=== PATIENT | male | born 1955 | race Caucasian/White ===

== ENCOUNTER → 2019-07-16 | Outpatient (CLI) | payer MEDICARE ==
--- NOTE | 2019-07-17 07:14 | REP ---
SCROTAL SONOGRAPHY: HISTORY: Scrotal fullness. FINDINGS: High-resolution bilateral scrotal sonography is performed. There is no evidence of intratesticular mass lesion. Right testis measures 4.7 x 2.2 x 2.8 cm. Left testicular dimensions of 3.6 x 1.8 x 3.4 cm. Testicular Doppler flow is present bilaterally and normal with resistive indices measured at 0.52 and 0.46 on the right and left respectively. There are small intratesticular cysts noted bilaterally. In the lower pole of the right testis there is a 0.4 cm cyst. In the lower pole of the left testis, there are two adjacent similar size cysts 0.3 cm in greatest diameter each. Superior to the left testis, there is a large septated cystic lesion 6.7 x 3.1 x 6.3 cm. This is felt to be epididymal cyst. The left epididymis is otherwise not seen. Right epididymis is unremarkable. There is some dilation of the rete testis in the mediastinum testis on the left. This is an incidental benign finding. IMPRESSION: 6.7 cm epididymal cyst on the left. Small intratesticular cysts bilaterally. 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 Electronically Signed by Keith Wheat MD 07/17/2019 08:16 A
== END ==
LOC: M RAD 17:08
PROVIDERS: ATTEND Family Medicine
DX: N50.89 Other specified disorders of the male genital organs (principal)

== ENCOUNTER → 2019-08-22 | Outpatient (CLI) | payer MEDICARE ==
[2019-08-22 13:04] LABS: HEMATOCRIT 45.9 % (42.0-52.0); HEMOGLOBIN 16.2 g/dl (13.5-17.5); MEAN CORPUSCULAR HEMOGLOBIN 32.5 pg (27.0-33.0); MEAN CORPUSCULAR HGB CONC 35.3 g/dl (32.0-36.5); MEAN CORPUSCULAR VOLUME 92.2 fl (80.0-96.0); PLATELET COUNT, AUTOMATED 320 10^3/uL (150-450); RED BLOOD COUNT 4.98 10^6/uL (4.30-6.10); WHITE BLOOD COUNT 7.8 10^3/uL (4.0-10.0)
[2019-08-22 13:40] LABS: BLOOD UREA NITROGEN 13 MG/DL (7-18); CALCIUM LEVEL 9.4 MG/DL (8.8-10.2); CARBON DIOXIDE LEVEL 29 MEQ/L (21-32); CHLORIDE LEVEL 105 MEQ/L (98-107); CREATININE FOR GFR 0.85 MG/DL (0.70-1.30); GLOMERULAR FILTRATION RATE > 60.0 (>49); GLUCOSE, FASTING 95 MG/DL (70-100); POTASSIUM SERUM 4.2 MEQ/L (3.5-5.1); SODIUM LEVEL 140 MEQ/L (136-145)
--- NOTE | 2019-08-22 16:03 | REP ---
REASON: History of epididymal cyst. There are no prior plain chest radiographs for comparison. There is left apical pleural capping with evidence of curvilinear densities from that region to the left sided superior mediastinum and silhouetting out a portion of the aortic knob. There is a Mediport device entering from the right the tip of which is in the superior vena cava. The heart is not enlarged. The pleural angles are sharp. There are no appreciable right lung changes. The osseous structures are within normal limits. IMPRESSION: Likely left upper lobe scar formation. Etiology uncertain. Since there is a Mediport device in place there is likely postoperative and/or postradiation change. Clinical correlation and followup is suggested. Electronically Signed by Kartik Obregon DO 08/23/2019 12:20 P
== END ==
LOC: M ADAMS 10:54
PROVIDERS: ATTEND Urology
DX: N50.3 Cyst of epididymis (principal)

== ENCOUNTER → 2020-09-03 | Outpatient (REF) | payer MEDICARE ==
[2020-09-03 12:47] LABS: BASO % 0.5 % (0.0-1.0); EOS # 0.4 10^3/uL (0.0-0.5); EOS % 5.9 % (0.0-3.0); HEMATOCRIT 48.8 % (42.0-52.0); HEMOGLOBIN 16.6 g/dl (13.5-17.5); LYMPH # 0.8 10^3/uL (1.5-5.0); LYMPH % 13.3 % (24.0-44.0); MEAN CORPUSCULAR HEMOGLOBIN 30.9 pg (27.0-33.0); MEAN CORPUSCULAR VOLUME 90.9 fl (80.0-96.0); MONO # 0.7 10^3/uL (0.0-0.8); MONO % 11.6 % (2.0-8.0); NEUTROPHILS # 4.2 10^3/uL (1.5-8.5); NEUTROPHILS % 68.1 % (36.0-66.0); PLATELET COUNT, AUTOMATED 270 10^3/uL (150-450); RED BLOOD COUNT 5.37 10^6/uL (4.30-6.10); WHITE BLOOD COUNT 6.2 10^3/uL (4.0-10.0)
[2020-09-03 13:19] LABS: ALBUMIN 3.6 GM/DL (3.2-5.2); ALT/SGPT 15 U/L (12-78); BILIRUBIN,TOTAL 1.2 MG/DL (0.2-1.0); BLOOD UREA NITROGEN 19 MG/DL (7-18); CALCIUM LEVEL 8.9 MG/DL (8.8-10.2); CARBON DIOXIDE LEVEL 29 MEQ/L (21-32); CHLORIDE LEVEL 108 MEQ/L (98-107); CHOLESTEROL LEVEL 186 MG/DL (<200); CHOLESTEROL RISK RATIO 3.647 (<5); CREATININE FOR GFR 0.75 MG/DL (0.70-1.30); FREE T4 1.06 NG/DL (0.76-1.46); GLOMERULAR FILTRATION RATE > 60.0 (>49); GLUCOSE, FASTING 91 MG/DL (70-100); HDL CHOLESTEROL 51 MG/DL (>40); LDL CHOLESTEROL 118 MG/DL (<100); NON-HDL-C 135 MG/DL; POTASSIUM SERUM 4.3 MEQ/L (3.5-5.1); SODIUM LEVEL 140 MEQ/L (136-145); TRIGLYCERIDES LEVEL 85 MG/DL (<150)
[2020-09-03 13:21] LABS: VITAMIN B12 LEVEL 371 PG/ML
[2020-09-03 13:23] LABS: FOLATE 5.5 NG/ML
== END ==
LOC: M SFHCADAM 09:16
PROVIDERS: ATTEND Family Medicine
DX: G47.00 Insomnia, unspecified (principal); R20.2 Paresthesia of skin; Z79.899 Other long term (current) drug therapy

== ENCOUNTER → 2020-09-29 | Outpatient (REF) | payer MEDICARE | LOC: M SFHCADAM 10:22 | PROVIDERS: ATTEND Family Medicine | DX: R35.1 Nocturia (principal) ==

== ENCOUNTER → 2021-05-01 | Outpatient (CLI) | payer MEDICARE ==
--- NOTE | 2021-05-01 09:22 | REP ---
INDICATION: ELEVATED LFT'S NEEDS LAB AFTER US COMPARISON: None. TECHNIQUE: Real time cerrato scale ultrasound examination using curved array transducer. FINDINGS: Liver is mildly echogenic suggesting fatty infiltration. No focal hepatic lesion identified. Pancreas is normal in appearance. The gallbladder demonstrates multiple gallstones without wall thickening or pericholecystic fluid. No biliary ductal dilatation is appreciated and the common bile duct measures 4.0 mm diameter. Right kidney is normal in reniform shape without hydronephrosis and measures 11.8 x 5.5 x 4.6 cm. No ascites in the visualized right upper quadrant. IMPRESSION: Cholelithiasis. Mild hepatosteatosis. <Electronically signed by Chang Mejia > 05/01/21 [id number]
[2021-05-01 10:27] LABS: INR 1.01; PROTHROMBIN TIME 13.7 SECONDS (12.7-14.5)
[2021-05-01 10:28] LABS: PARTIAL THROMBOPLASTIN TIME 35.2 SECONDS (25.9-37.0)
[2021-05-01 10:49] LABS: ALBUMIN 4.1 GM/DL (3.2-5.2); ALT/SGPT 17 U/L (12-78); BILIRUBIN,DIRECT 0.5 MG/DL (0.0-0.2); BILIRUBIN,TOTAL 2.5 MG/DL (0.2-1.0); FERRITIN 327 NG/ML (26-388); IRON (FE) 86 UG/DL (65-175); PERCENT SATURATION 26.3 % (19.7-50.0); THYROID STIMULATING HORMONE 0.616 uIU/ML (0.358-3.740); TOTAL IRON BINDING CAPACITY 327 UG/DL (250-450); TOTAL PROTEIN 7.8 GM/DL (6.4-8.2)
[2021-05-01 11:22] LABS: HEPATITIS B SURFACE ANTIBODY NEGATIVE (POSITIVE)
[2021-05-01 11:32] LABS: HEPATITIS B SURFACE ANTIGEN NEGATIVE (NEGATIVE)
[2021-05-01 12:00] LABS: HEPATITIS C VIRUS ABY INDEX 0.1 INDEX (<0.8)
[2021-05-02 18:11] LABS: ALPHA 1 ANTITRYPSIN 143 mg/dL (101-187); ANTI-MITOCHONDRIAL ANTIBODY <20.0 Units (0.0-20.0); ANTI-SMOOTH MUSCLE ANTIBODY 8 Units (0-19); ANTINUCLEAR ANTIBODIES DIRECT Negative (Negative); CERULOPLASMIN 29.3 mg/dL (16.0-31.0); HEPATITIS A IgG TOTAL Positive (Negative); LIVER-KIDNEY MICROSOMAL ABY <20.1 Units (0.0-20.0); TISSUE TRANSGLUTAMINASE IgA <2 U/mL (0-3); TISSUE TRANSGLUTAMINASE IgG 7 U/mL (0-5)
[2021-05-04 09:38] LABS: ALBUMIN 4.56 GM/DL (3.29-5.55); ALBUMIN % 58.4 % (55.8-66.1); ALPHA-1-GLOBULIN % 4.1 % (2.9-4.9); ALPHA-1-GLOBULINS 0.32 GM/DL (0.17-0.41); ALPHA-2-GLOBULINS 0.73 GM/DL (0.42-0.99); ALPHA-2-GLOBULINS % 9.4 % (7.1-11.8); BETA-1-GLOBULINS 0.44 GM/DL (0.28-0.60); BETA-1-GLOBULINS % 5.7 % (4.7-7.2); BETA-2-GLOBULINS 0.41 GM/DL (0.19-0.55); BETA-2-GLOBULINS % 5.2 % (3.2-6.5); GAMMA GLOBULIN % 17.2 % (11.1-18.8); GAMMA GLOBULINS 1.34 GM/DL (0.65-1.58)
== END ==
LOC: M RAD 08:08 → M LAB 08:08
PROVIDERS: ATTEND Physician Assistant Medical
DX: R94.5 Abnormal results of liver function studies (principal); Z12.11 Encounter for screening for malignant neoplasm of colon; K80.20 Calculus of gallbladder without cholecystitis without obstruction

== ENCOUNTER → 2021-07-20 | Outpatient (REF) | payer MEDICARE ==
[2021-07-20 13:36] LABS: BLOOD UREA NITROGEN 15 MG/DL (7-18); CREATININE FOR GFR 0.76 MG/DL (0.70-1.30); GLOMERULAR FILTRATION RATE > 60.0 (>49)
== END ==
LOC: M LABDRWAD 12:17
PROVIDERS: ATTEND Radiology Radiation Oncology
DX: C34.12 Malignant neoplasm of upper lobe, left bronchus or lung (principal)

== ENCOUNTER → 2021-07-29 | Outpatient (CLI) | payer MEDICARE ==
[~2021-07-29] MED LIST: PROHANCE 279.3MG/ML 15ML VIAL As Ordered ONE
== END ==
LOC: M RAD 15:07
PROVIDERS: ATTEND Radiology Radiation Oncology
DX: C34.12 Malignant neoplasm of upper lobe, left bronchus or lung (principal); C79.31 Secondary malignant neoplasm of brain
CPT/HCPCS: 70553; A9576

== ENCOUNTER → 2021-10-08 | Outpatient (REF) | payer MEDICARE ==
[2021-10-09 13:05] LABS: BASO % 0.6 % (0.0-1.0); EOS # 0.1 10^3/uL (0.0-0.5); EOS % 2.2 % (0.0-3.0); HEMATOCRIT 41.9 % (42.0-52.0); HEMOGLOBIN 14.6 g/dl (13.5-17.5); LYMPH # 1.1 10^3/uL (1.5-5.0); LYMPH % 17.2 % (24.0-44.0); MEAN CORPUSCULAR HEMOGLOBIN 31.4 pg (27.0-33.0); MEAN CORPUSCULAR HGB CONC 34.8 g/dl (32.0-36.5); MEAN CORPUSCULAR VOLUME 90.1 fl (80.0-96.0); MONO # 0.8 10^3/uL (0.0-0.8); NEUTROPHILS # 4.4 10^3/uL (1.5-8.5); NEUTROPHILS % 67.7 % (36.0-66.0); PLATELET COUNT, AUTOMATED 282 10^3/uL (150-450); RED BLOOD COUNT 4.65 10^6/uL (4.30-6.10); WHITE BLOOD COUNT 6.5 10^3/uL (4.0-10.0)
[2021-10-09 13:11] LABS: ALBUMIN 3.9 GM/DL (3.2-5.2); ALT/SGPT 20 U/L (12-78); BILIRUBIN,TOTAL 1.3 MG/DL (0.2-1.0); BLOOD UREA NITROGEN 21 MG/DL (7-18); CALCIUM LEVEL 9.4 MG/DL (8.8-10.2); CARBON DIOXIDE LEVEL 28 MEQ/L (21-32); CHLORIDE LEVEL 109 MEQ/L (98-107); CREATININE FOR GFR 0.77 MG/DL (0.70-1.30); GLOMERULAR FILTRATION RATE > 60.0 (>49); GLUCOSE, FASTING 92 MG/DL (70-100); POTASSIUM SERUM 3.8 MEQ/L (3.5-5.1); SODIUM LEVEL 142 MEQ/L (136-145); TOTAL PROTEIN 7.1 GM/DL (6.4-8.2)
== END ==
LOC: M SFHCADAM 15:39
PROVIDERS: ATTEND Family Medicine
DX: Z00.00 Encounter for general adult medical examination without abnormal findings (principal); R97.20 Elevated prostate specific antigen [PSA]
CPT/HCPCS: 80053; 85025; G0103

== ENCOUNTER → 2021-10-08 | Outpatient (CLI) | payer MEDICARE ==
[2021-10-09 13:12] LABS: BILIRUBIN,DIRECT 0.3 MG/DL (0.0-0.2); BILIRUBIN,TOTAL 1.3 MG/DL (0.2-1.0); TOTAL PROTEIN 7.2 GM/DL (6.4-8.2)
== END ==
LOC: M ADAMS 15:48
PROVIDERS: ATTEND Physician Assistant Medical
DX: R94.5 Abnormal results of liver function studies (principal); Z12.11 Encounter for screening for malignant neoplasm of colon; K80.20 Calculus of gallbladder without cholecystitis without obstruction

== ENCOUNTER → 2022-05-18 | Outpatient (CLI) | payer MEDICARE | LOC: M WUC 14:13 | PROVIDERS: ATTEND Physician Assistant | DX: R05.9 Cough, unspecified (principal); R06.02 Shortness of breath ==

== ENCOUNTER → 2022-05-24 | Outpatient (CLI) | payer MEDICARE | LOC: M ADAMS 12:00 | PROVIDERS: ATTEND Family Medicine | DX: R05.1 Acute cough (principal); R91.8 Other nonspecific abnormal finding of lung field ==